=== PATIENT | female | born 1955 | race Caucasian/White ===

== ENCOUNTER → 2019-04-03 | Outpatient (CLI) | payer MEDICARE ==
--- NOTE | 2019-04-05 13:39 | MM ---
Reason for exam: screening (asymptomatic). Last mammogram was performed 3 years and 2 months ago. History: Patient is postmenopausal. Physical Findings: A clinical breast exam by your physician is recommended on an annual basis and results should be correlated with mammographic findings. MG 3D Screening Mammo W/Cad Bilateral CC and MLO view(s) were taken. XCCL view(s) were taken of the left breast. Prior study comparison: January 25, 2016, bilateral MG screening mammo w CAD. July 04, 2011, bilateral digital screening mammo w/CAD. There are scattered fibroglandular densities. There are benign appearing round calcifications in the right breast. There is no discrete abnormality. ASSESSMENT: Benign, BI-RAD 2 RECOMMENDATION: Routine screening mammogram of both breasts in 1 year.
== END | disposition home or self-care (01) ==
LOC: RADMAMWWP 13:09
PROVIDERS: ATTEND Family Medicine
DX: Z12.31 Encounter for screening mammogram for malignant neoplasm of breast (principal)
CPT/HCPCS: 77063; 77067

== ENCOUNTER → 2021-03-10 | Outpatient (CLI) | payer MEDICARE ==
--- NOTE | 2021-03-10 16:40 | XR ---
EXAMINATION TYPE: XR chest 2V DATE OF EXAM: 03/10/2021 COMPARISON: NONE HISTORY: Chest pain TECHNIQUE: Frontal and lateral views of the chest are obtained. FINDINGS: There is no focal air space opacity, pleural effusion, or pneumothorax seen. The cardiac silhouette size is within normal limits. The osseous structures are intact. IMPRESSION: No acute cardiopulmonary process.
== END | disposition home or self-care (01) ==
LOC: RADXRMAIN 13:07
PROVIDERS: ATTEND Family Medicine
DX: R07.89 Other chest pain (principal)
CPT/HCPCS: 71046

== ENCOUNTER → 2021-03-18 | Outpatient (CLI) | payer MEDICARE ==
--- NOTE | 2021-03-18 15:20 | XR ---
Bilateral knees HISTORY: Abnormal weight loss, epigastric pain, pain and swelling in both knees 3 views of each knee submitted. Bone mineralization, joint spaces and alignment are maintained. Suprapatellar increased density is pr esent bilaterally compatible with joint effusions right greater than left. There is spurring at the p atellofemoral joints. IMPRESSION: Joint effusions. Mild osteoarthritic change suspected.
== END | disposition home or self-care (01) ==
LOC: LABWHC1 14:35
PROVIDERS: ATTEND Family Medicine
DX: M25.461 Effusion, right knee (principal); M25.462 Effusion, left knee

== ENCOUNTER → 2021-04-08 | Outpatient (CLI) | payer MEDICARE ==
[2021-04-08 19:35] LABS: African American GFR (CKD) 88.4 (60.0-200.0); Anion Gap 11.6 mmol/L (4.00-12.00); Calcium 8.8 mg/dL (8.7-10.3); Carbon Dioxide 24.4 mmol/L (21.6-31.8); Non-African American GFR(CKD) 76.3 (60.0-200.0); Potassium 4.8 mmol/L (3.5-5.5)
== END | disposition home or self-care (01) ==
LOC: LABWHC1 10:09
PROVIDERS: ATTEND Internal Medicine Interventional Cardiology
DX: I48.91 Unspecified atrial fibrillation (principal)
CPT/HCPCS: 36415; 80048

== ENCOUNTER → 2021-05-11 | Outpatient (CLI) | payer MEDICARE ==
[2021-05-11 13:07] LABS: HCT 43.3 % (34.0-46.0); HGB 14.6 gm/dL (11.4-16.0); MCH 31.5 pg (25.0-35.0); MCHC 33.6 g/dL (31.0-37.0); MCV 93.6 fL (80.0-100.0); Platelet Count 263 k/uL (150-450); RBC 4.63 m/uL (3.80-5.40); RDW 13.1 % (11.5-15.5); WBC 6.9 k/uL (3.8-10.6)
[2021-05-11 13:17] LABS: Potassium 4.8 mmol/L (3.5-5.1)
== END | disposition home or self-care (01) ==
LOC: LABWHC1 12:08
PROVIDERS: ATTEND Internal Medicine Interventional Cardiology
DX: Z01.812 Encounter for preprocedural laboratory examination (principal); I48.11 Longstanding persistent atrial fibrillation
CPT/HCPCS: 36415; 80051; 82565; 84520; 85027

== ENCOUNTER → 2021-05-20 | Day surgery (SDC) | payer MEDICARE ==
[2021-05-19 08:38] VITALS: BMI 32.1
[~2021-05-20] MED LIST: LACTATED RINGERS 1,000 ML IV SCH; PROPOFOL 10 MG/ML 20 ML VIAL IV ONE; SODIUM CHLORIDE 0.9% 1,000 ML IV SCH; SODIUM CHLORIDE 0.9% 500 ML 500 ML IV ONE
[2021-05-20 07:52] VITALS: TEMP 99.4
[2021-05-20 08:57] VITALS: RESP 16
[2021-05-20 10:08] VITALS: BP 131/59; PULSE 67
--- NOTE | 2021-05-20 12:15 | CE ---
CARDIAC ELECTROPHYSIOLOGY REPORT DATE OF SERVICE: 05/20/2021 PROCEDURE: Electrical cardioversion. INDICATION: Persistent atrial fibrillation in spite of pharmacological efforts. CLINICAL INFORMATION: Mrs. Gr presented to see me for a stress test and during the stress test was found to be in atrial fibrillation which is probably new onset. Rate was controlled. Placed on amiodarone and adequately anticoagulated and was brought in for electrical cardioversion electively after due discussion regarding risks, benefits, and options. PROCEDURE NOTE: Under the influence of ultra short-acting intravenous anesthetic agent with the attendance of the anesthesiologist, initial shock of 250 joules was given with anterior and posterior patches. Patient remained in atrial fib, did not convert to sinus rhythm. A second shock of 300 joules was given and with this also she remained in atrial fibrillation. This was therefore an unsuccessful electrical cardioversion. We will continue with rate control and anticoagulation. The details were discussed with the patient and her sister. She will be discharged later on today and I will see her in the office in 1-2 weeks. Same medications will be continued. MMODL / IJN: [id number] /
== END ==
LOC: CATHCVL 07:14
PROVIDERS: ATTEND Internal Medicine Interventional Cardiology
DX: I48.19 Other persistent atrial fibrillation (principal); Z87.891 Personal history of nicotine dependence; R03.0 Elevated blood-pressure reading, without diagnosis of hypertension; Z20.822 Contact with and (suspected) exposure to COVID-19; Z82.49 Family history of ischemic heart disease and other diseases of the circulatory system; Z79.01 Long term (current) use of anticoagulants; Z79.899 Other long term (current) drug therapy; Z88.5 Allergy status to narcotic agent
CPT/HCPCS: 92960; 87635; J2704

== ENCOUNTER → 2021-07-19 | Outpatient (CLI) | payer MEDICARE ==
[2021-07-19 09:24] LABS: HCT 45.1 % (34.0-46.0); HGB 15.4 gm/dL (11.4-16.0); MCH 32.9 pg (25.0-35.0); MCHC 34.1 g/dL (31.0-37.0); MCV 96.4 fL (80.0-100.0); Mean Platelet Volume 8.8; Platelet Count 266 k/uL (150-450); RBC 4.68 m/uL (3.80-5.40); RDW 14.1 % (11.5-15.5); WBC 5.8 k/uL (3.8-10.6)
[2021-07-19 09:33] LABS: Potassium 4.3 mmol/L (3.5-5.1)
== END | disposition home or self-care (01) ==
LOC: LABPAT 08:23
PROVIDERS: ATTEND Internal Medicine Clinical Cardiac Electrophysiology
DX: Z01.812 Encounter for preprocedural laboratory examination (principal); I48.11 Longstanding persistent atrial fibrillation
CPT/HCPCS: 36415; 80051; 82565; 84520; 85027

== ENCOUNTER 2021-07-27 11:45 | Day surgery (SDC) | payer MEDICARE ==
[2021-07-22 08:17] VITALS: BMI 31.8
[~2021-07-27 11:45] MED LIST changes: +DEXAMETHASONE SOD PHOSPHATE 4 MG/ML 1 ML VIAL IV ONE; +HYDROmorphone 0.5 MG/0.5 ML SYRINGE IVP PRN; -LACTATED RINGERS 1,000 ML IV SCH; +MIDAZOLAM 2 MG/2 ML VIAL IV PRN; +ONDANSETRON 4 MG/2 ML VIAL IVP ONE; -PROPOFOL 10 MG/ML 20 ML VIAL IV ONE; -SODIUM CHLORIDE 0.9% 1,000 ML IV SCH; -SODIUM CHLORIDE 0.9% 500 ML 500 ML IV ONE
--- NOTE | 2021-07-27 15:37 | P.HPCAR ---
History of Present Illness This is Dr. Schmitt dictating an H/P on this patient The patient was interviewed and examined IMPRESSION / ASSESSMENT: Persistent atrial fibrillation, symptomatic Amiodarone has been discontinued since it failed to maintain rhythm control Essential hypertension Moderate MR LV function 50% PLAN: Proceed with ablation for A. fib with pulmonary and isolation and linear ablation in the left atrium HPI Patient complains of shortness of breath on exertion She has failed to rhythm control strategy of starting amiodarone followed by electrical cardioversion Electrical cardioversion failed At this time she denies any fever chills cough expectoration. No chest discomfort dizziness or syncope recently ROS: No fever chills or rigors, no cough, phlegm or expectoration, no nausea, vomiting or diarrhea, no hematuria, dysuria, no musculoskeletal complaints, no strokes or seizures, no skin lesions. EXAMINATION: Afebrile 98.9F, blood pressure 120/79 mmHg Breath sounds are clear REVIEW OF LABS, ECG & MEDICAL DATA Xarelto 20 mg daily and metoprolol MRI shows bilateral frontal lobe atrophy Physical Exam Vitals: Vital Signs Temp Pulse Resp BP Pulse Ox 07/27/21 12:26 98.9 F 68 18 120/79 94 L Intake and Output 07/27/21 07/27/21 07/27/21 06:59 14:59 22:59 Other: Weight 92 kg Past Medical History Past Medical History: Atrial Fibrillation, Osteoarthritis (OA), Sleep Apnea/CPAP/BIPAP Additional Past Medical History / Comment(s): doesn't use CPAP, History of Any Multi-Drug Resistant Organisms: None Reported Past Surgical History: Hysterectomy, Orthopedic Surgery Additional Past Surgical History / Comment(s): CTS left wrist, left shoulder arthroscopy, CARDIOVERSION Past Anesthesia/Blood Transfusion Reactions: Postoperative Nausea & Vomiting (PONV) Smoking Status: Former smoker - Past Family History Mother Family Medical History: No Reported History Physical Examination Vital Signs Temp Pulse Resp BP Pulse Ox 07/27/21 12:26 98.9 F 68 18 120/79 94 L Intake and Output 07/27/21 07/27/21 07/27/21 06:59 14:59 22:59 Other: Weight 92 kg Results Current Medications Generic Name Dose Route Start Last Admin Trade Name Freq PRN Reason Stop Dose Admin Hydromorphone HCl 0.5 mg 07/27/21 07:00 Hydromorphone 0.5 Mg/0.5 Ml Syringe IVP 07/27/21 23:00 Q5M PRN Pain Control Sodium Chloride 1,000 mls @ 20 mls/hr 07/27/21 05:37 Saline 0.9% IV 08/26/21 05:38 .Q24H ALLEN Lactated Ringer's 1,000 mls @ 20 mls/hr 07/27/21 05:37 Lactated Ringers IV 08/26/21 05:38 .Q24H ALLEN Lactated Ringer's 1,000 mls @ 20 mls/hr 07/27/21 05:37 Lactated Ringers IV 08/26/21 05:38 .Q24H ALLEN Midazolam HCl 2 mg 07/27/21 07:00 Midazolam 2 Mg/2 Ml Vial IV 07/27/21 23:00 ONCE PRN Anxiety Intake and Output 07/27/21 07/27/21 07/27/21 06:59 14:59 22:59 Other: Weight 92 kg Patient Weight 07/28/21 06:59 Weight 92 kg
[2021-07-27] MEDS ORDERED: MIDAZOLAM 2 MG/2 ML VIAL ONE (15:44)
[2021-07-27] MEDS ORDERED: PROPOFOL 10 MG/ML 20 ML VIAL IV ONE (15:44)
[2021-07-27] MEDS ORDERED: DEXAMETHASONE SOD PHOSPHATE 10 MG/ML 1 ML VIAL ONE (15:44)
[2021-07-27] MEDS ORDERED: PROTAMINE SULFATE 10 MG/ML 5 ML VIAL IV ONE (15:44)
[2021-07-27] MEDS ORDERED: HEPARIN SODIUM,PORCINE 10,000 UNIT/ML 1 ML VIAL ONE (15:44)
[2021-07-27] MEDS ORDERED: SUCCINYLCHOLINE CHLORIDE 100 MG/5 ML SYR IV ONE (15:44)
[2021-07-27] MEDS ORDERED: PHENYLEPHRINE-0.9% NACL SYG 1,000 MCG/10 ML SYRINGE ONE (15:44)
[2021-07-27] MEDS ORDERED: fentaNYL (PF) 50 MCG/ML 2 ML AMP ONE (15:44)
[2021-07-27] MEDS ORDERED: LIDOCAINE 1% INJ 10MG/ML (20 ML MDV) ONE ×2 (15:44→16:12)
[2021-07-27] MEDS ORDERED: HEPARIN SOD,PORK IN 0.45% NACL 25,000 UNIT in 0.45% NACL 1 250ML.BAG IV ONE (15:57)
[2021-07-27] MEDS ORDERED: IV FLUID CONTINUATION 950 ML IV ONE (15:57)
[2021-07-27] MEDS ORDERED: HEPARIN SODIUM (1,000 UNIT/ML) 1,000 UNIT in SODIUM CHLORIDE 0.9% 1,000 ML IRRIGATION ONE (15:57)
[2021-07-27] MEDS ORDERED: LIDOCAINE 1% INJ 10MG/ML (20 ML MDV) SQ ONE (16:36)
[2021-07-27] MEDS ORDERED: IOPAMIDOL-370 100ML BTL INJ ONE ×2 (18:30)
--- NOTE | 2021-07-27 19:30 | P.EPPROC ---
- EP Procedure Note Electrophysiology Procedure Note: PROCEDURE A. fib ablation, PVI and linear ablation DIAGNOSIS Atrial fibrillation, symptomatic, refractory to therapy Persistent atrial fibrillation, symptomatic Failed amiodarone therapy RESULT No left atrial appendage mass seen on intracardiac echo Successful A. fib ablation/pulmonary vein isolation of all veins using cryo- ablation Complete entrance block in all 4 veins confirmed No evidence for phrenic nerve injury Continue ablation left atrial roof with complete line of block Linear ablation posterior left atrial septum, complete line of block Esophageal deflection YES Electrical cardioversion with a synchronized shock across the chest YES PROCEDURE DETAILS Patient was brought to the EP lab in a fasting state. Written informed consent was obtained prior to the procedure. Procedure performed under general anesthesia After initial muscle relaxant use, muscle relaxants were not given thereafter in order to assess phrenic nerve during procedure. Patient prepped and draped as per protocol Full cryo-set up with standard preparation of the cryoablation tools done. Femo ral Venous access obtained on the right and left groins Venous and arterial Sheaths placed. Diagnostic catheters for the high right atrium, phrenic nerve stimulation and pacing, His bundle, RV and coronary sinus placed Intracardiac echo catheter placed. Long sheath placed in the right atrium Left and right transseptal catheterization performed under intracardiac echo guidance. Intravenous heparin with aCT above 300 Later, catheter positioning and balloon positioning in the left atrium, under intracardiac echo guidance Diagnostic EP study with Coronary sinus recording Baseline measurements: QRS 86, QT 440 Transseptal catheterization performed RA pressure 8/5/7 LA pressure 21/9/15 Transseptal catheterization performed with standard sheath. The cryoablation sheath was then placed with an over the wire exchange without any acute complications. All 4 pulmonary veins were isolated in the following sequence: Left superior followed by left inferior followed by right superior followed by right inferior The cryo-ablation balloon was placed at the os of each vein 1.5 mL of IV dye was injected to confirm an occluded vein Goal during cryoablation was to achieve complete occlusion of the pulmonary vein, achieve -30 degrees C at 30 seconds and achieve -40 degrees C at 60 seconds and a time to effect of less than 60-90 seconds, . If not the balloon was repositioned to obtain this result After completion of Cryoblation with durations from 180-240 seconds, entrance block was confirmed with the Attain circular catheter in a roving fashion around the antrum of the pulmonary veins Phrenic nerve pacing was performed from the SVC, right innominate vein area and diaphragm voltage was monitored. Diaphragmatic contractions were also monitored manually for strength of contraction. Parameter goals for each cryo freeze Complete occlusion of the appropriate vein -30 degrees C by 30 seconds -40 degrees C by 60 seconds Minimum between minus 40-55 degrees C Thaw time greater than 10 seconds Balloon visualized by intracardiac echo The esophagus was intubated. Esophageal Temperature monitoring with a CIRCA catheter formed. Esophageal deflection for hypothermia of the esophagus below 30 degrees C Left superior pulmonary vein Complete isolation, entrance block Left inferior pulmonary vein Complete isolation, entrance block Right superior pulmonary vein, during phrenic nerve pacing Complete isolation, entrance block Right inferior pulmonary vein, during phrenic nerve pacing Complete isolation, entrance block At the end of the procedure the Achieve catheter was once again used to check for entrance block Phrenic nerve stimulation was performed to confirm diaphragmatic stimulation the end of the procedure Cine fluoroscopy was performed at the very end of the procedure to confirm movement of both diaphragms with inspiration and expiration Using the cryo balloon, linear ablation was performed from the right superior to the left superior pulmonary veins This was later evaluated with voltage mapping Voltage mapping of the left atrial roof showed that the posterior left atrial roof was completely ablated and isolated the complete line of block RF catheter sheath was placed RF ablation was also applied in the septum from the roof down to the right inferior pulmonary vein and the posterior septum was completely isolated At the end of the procedure the patient was extubated Heparin was reversed Venous sheaths were removed and hemostasis assured. Vascade applied PROCEDURES PERFORMED Diagnostic EP study CS pacing and recording Left and right transseptal catheterization 3D mapping) Intracardiac echocardiography Pulmonary vein isolation with transseptal and comprehensive EPS, [id number] Left atrial roof line, +[id number] Linear ablation, left atrium, +[id number] Electrical cardioversion with a synchronized shock across the chest [id number]
--- NOTE | 2021-07-27 19:32 | P.PRLE ---
RE: Chayito Gr Dear Jessi Stratton underwent A. fib ablation with cryoablation the pulmonary veins, linear ablation in the left atrial roof and linear ablation of left atrial septum Subsequently she remained in atrial fibrillation and underwent electrical cardioversion She will continue anticoagulation Amiodarone was already discontinued previously since it failed to maintain sinus rhythm She'll continue to follow with you and Dr. Fuentes as before Thank you for entrusting me with the care of the patient Warm regards Sincerely Pedro Schmitt
[2021-07-27] MEDS ORDERED: ACETAMINOPHEN IV (For NPO) 1,000 MG in EMPTY BAG 1 BAG IVPB ONE (19:36)
[2021-07-27] MEDS ORDERED: ACETAMINOPHEN TAB 325 MG TAB PO PRN (19:36)
[2021-07-27] MEDS: LACTATED RINGERS 1,000 ML IV SCH ×2 (20:38)
[2021-07-27] MEDS: SODIUM CHLORIDE 0.9% 1,000 ML IV SCH (20:39)
[2021-07-27] MEDS ORDERED: RIVAROXABAN 20 MG TAB PO SCH (21:45)
[2021-07-28] MEDS: LACTATED RINGERS 1,000 ML IV SCH ×2 (03:49)
[2021-07-28] MEDS: SODIUM CHLORIDE 0.9% 1,000 ML IV SCH (03:49)
[2021-07-28 07:03] VITALS: BP 111/70; PULSE 76; RESP 16; TEMP 98.6
[2021-07-28] MEDS ORDERED: METOPROLOL TARTRATE 25 MG TAB PO SCH (09:00)
[2021-07-28] MEDS ORDERED: RIVAROXABAN 20 MG TAB PO SCH (21:00)
== END 2021-07-28 15:31 | disposition home or self-care (01) ==
LOC: CATHEP 11:45 → 6NMEDSUR 17:18 → CATHEP 07-28 15:31
PROVIDERS: ATTEND Internal Medicine Clinical Cardiac Electrophysiology
DX: I48.19 Other persistent atrial fibrillation (principal); Z79.01 Long term (current) use of anticoagulants; Z79.899 Other long term (current) drug therapy; R03.0 Elevated blood-pressure reading, without diagnosis of hypertension
CPT/HCPCS: 93662; 93613; 93656; 93657; C1894 ×2; C1769 ×4; C1760; C1730 ×2; C1893; C1733; C1766; C1732; J2001; J1644 ×2; Q9967

== ENCOUNTER 2021-10-17 09:24 | Emergency (ER) | payer MEDICARE ==
[2021-10-17 09:38] VITALS: RESP 18
[2021-10-17] MEDS ORDERED: ACETAMINOPHEN TAB 500 MG TAB PO STA (11:36)
[2021-10-17] MEDS ORDERED: SODIUM CHLORIDE 0.9% 1,000 ML IV ONE (11:36)
--- NOTE | 2021-10-17 11:39 | ED ---
General Adult HPI - General Chief complaint: Upper Respiratory Infection Stated complaint: Dizziness, abd pain, cough Time Seen by Provider: 10/17/21 10:45 Source: patient, RN notes reviewed, old records reviewed Mode of arrival: ambulatory Limitations: no limitations - History of Present Illness Initial comments: 66-year-old female presenting with cough congestion for the past one week. She's had intermittent fevers over this time. She is not vaccinated against coronavirus. She has a mild dyspnea. No previous history of asthma or COPD. She does report some indigestion and lower chest discomfort which is been present for this past week as well. - Related Data Home Medications Medication Instructions Recorded Confirmed Metoprolol Tartrate [Lopressor] 25 mg PO DAILY 05/19/21 07/27/21 Rivaroxaban [Xarelto] 20 mg PO HS 05/19/21 07/27/21 Allergies Allergy/AdvReac Type Severity Reaction Status Date / Time No Known Allergies Allergy Verified 10/17/21 12:58 Review of Systems ROS Statement: Those systems with pertinent positive or pertinent negative responses have been documented in the HPI. ROS Other: All systems not noted in ROS Statement are negative. Past Medical History Past Medical History: Atrial Fibrillation, Hypertension, Sleep Apnea/CPAP/BIPAP Additional Past Medical History / Comment(s): doesn't use CPAP, frequent leg & knee pain History of Any Multi-Drug Resistant Organisms: None Reported Past Surgical History: Ablation Additional Past Surgical History / Comment(s): CTS left wrist, left shoulder arthroscopy Past Anesthesia/Blood Transfusion Reactions: Postoperative Nausea & Vomiting (PONV) Past Psychological History: No Psychological Hx Reported Smoking Status: Former smoker Past Alcohol Use History: Occasional Past Drug Use History: None Reported General Exam Limitations: no limitations General appearance: alert, in no apparent distress Head exam: Present: atraumatic, normocephalic Eye exam: Present: normal appearance, PERRL ENT exam: Present: mucous membranes dry Neck exam: Present: normal inspection. Absent: tenderness, meningismus Respiratory exam: Present: rhonchi. Absent: respiratory distress, wheezes Cardiovascular Exam: Present: regular rate, normal rhythm GI/Abdominal exam: Present: soft. Absent: distended, tenderness, guarding Extremities exam: Present: normal inspection, normal capillary refill. Absent: pedal edema Neurological exam: Present: alert, oriented X3, CN II-XII intact. Absent: motor sensory deficit Psychiatric exam: Present: normal affect, normal mood Skin exam: Present: warm, dry, intact. Absent: cyanosis, diaphoretic Course Vital Signs 10/17/21 10/17/21 09:35 12:43 Temperature 101.1 F H Pulse Rate 79 60 Respiratory 18 18 Rate Blood Pressure 143/67 99/54 O2 Sat by Pulse 95 95 Oximetry EKG Findings - EKG Comments: EKG Findings:: EKG: Normal sinus rhythm, rate 77, MO interval 176, QRS duration 74, QTC [address] segment elevation. Medical Decision Making - Medical Decision Making 66-year-old female with cold-like illness, does test positive for coronavirus. She has normal oxygenation on room air without respiratory distress. Mild tachypnea. She has a normal CBC, relatively normal CMP, negative troponin, nonischemic EKG. This workup was initiated secondary to some lower chest discomfort. She's had symptoms for one week and does meet criteria for monoclonal antibody infusion. This is administered in the emergency department. She's given strict return parameters. - Lab Data Result diagrams: 10/17/21 11:56 10/17/21 11:56 Lab Results 10/17/21 10/17/21 10/17/21 Range/Units 09:42 11:56 11:56 WBC 3.9 (3.8-10.6) k/uL RBC 4.80 (3.80-5.40) m/uL Hgb 15.3 (11.4-16.0) gm/dL Hct 44.7 (34.0-46.0) % MCV 93.1 (80.0-100.0) fL MCH 31.9 (25.0-35.0) pg MCHC 34.2 (31.0-37.0) g/dL RDW 12.7 (11.5-15.5) % Plt Count 170 (150-450) k/uL MPV 8.6 Neutrophils % 57 % Lymphocytes % 34 % Monocytes % 6 % Eosinophils % 0 % Basophils % 0 % Neutrophils # 2.2 (1.3-7.7) k/uL Lymphocytes # 1.4 (1.0-4.8) k/uL Monocytes # 0.2 (0-1.0) k/uL Eosinophils # 0.0 (0-0.7) k/uL Basophils # 0.0 (0-0.2) k/uL Sodium 142 (137-145) mmol/L Potassium 4.5 (3.5-5.1) mmol/L Chloride 104 (98-107) mmol/L Carbon Dioxide 29 (22-30) mmol/L Anion Gap 9 mmol/L BUN 16 (7-17) mg/dL Creatinine 0.97 (0.52-1.04) mg/dL Est GFR (CKD-EPI)AfAm 70 (>60 ml/min/1.73 sqM) Est GFR (CKD-EPI)NonAf 61 (>60 ml/min/1.73 sqM) Glucose 108 H (74-99) mg/dL Calcium 9.2 (8.4-10.2) mg/dL Magnesium 2.0 (1.6-2.3) mg/dL Total Bilirubin 0.9 (0.2-1.3) mg/dL AST 39 H (14-36) U/L ALT 39 H (4-34) U/L Alkaline Phosphatase 54 (38-126) U/L Troponin I (0.000-0.034) ng/mL Total Protein 7.5 (6.3-8.2) g/dL Albumin 4.2 (3.5-5.0) g/dL Coronavirus (PCR) Detected A (Not Detectd) 10/17/21 Range/Units 11:56 WBC (3.8-10.6) k/uL RBC (3.80-5.40) m/uL Hgb (11.4-16.0) gm/dL Hct (34.0-46.0) % MCV (80.0-100.0) fL MCH (25.0-35.0) pg MCHC (31.0-37.0) g/dL RDW (11.5-15.5) % Plt Count (150-450) k/uL MPV Neutrophils % % Lymphocytes % % Monocytes % % Eosinophils % % Basophils % % Neutrophils # (1.3-7.7) k/uL Lymphocytes # (1.0-4.8) k/uL Monocytes # (0-1.0) k/uL Eosinophils # (0-0.7) k/uL Basophils # (0-0.2) k/uL Sodium (137-145) mmol/L Potassium (3.5-5.1) mmol/L Chloride (98-107) mmol/L Carbon Dioxide (22-30) mmol/L Anion Gap mmol/L BUN (7-17) mg/dL Creatinine (0.52-1.04) mg/dL Est GFR (CKD-EPI)AfAm (>60 ml/min/1.73 sqM) Est GFR (CKD-EPI)NonAf (>60 ml/min/1.73 sqM) Glucose (74-99) mg/dL Calcium (8.4-10.2) mg/dL Magnesium (1.6-2.3) mg/dL Total Bilirubin (0.2-1.3) mg/dL AST (14-36) U/L ALT (4-34) U/L Alkaline Phosphatase (38-126) U/L Troponin I <0.012 (0.000-0.034) ng/mL Total Protein (6.3-8.2) g/dL Albumin (3.5-5.0) g/dL Coronavirus (PCR) (Not Detectd) Disposition Clinical Impression: COVID-19 Disposition: HOME SELF-CARE Condition: Fair Instructions (If sedation given, give patient instructions): Coronavirus Dis ease 2019 (COVID-19) Is patient prescribed a controlled substance at d/c from ED?: No Referrals: Ned Riddle DO [Primary Care Provider] - 1-2 days Time of Disposition: 12:59
[2021-10-17 12:11] LABS: Basophils % (A) 0 %; Eosinophils % (A) 0 %; HCT 44.7 % (34.0-46.0); HGB 15.3 gm/dL (11.4-16.0); Lymphocytes # (A) 1.4 k/uL (1.0-4.8); Lymphocytes % (A) 34 %; MCH 31.9 pg (25.0-35.0); MCHC 34.2 g/dL (31.0-37.0); MCV 93.1 fL (80.0-100.0); Mean Platelet Volume 8.6; Monocytes # (A) 0.2 k/uL (0-1.0); Monocytes % (A) 6 %; Neutrophils # (A) 2.2 k/uL (1.3-7.7); Neutrophils % (A) 57 %; Platelet Count 170 k/uL (150-450); RDW 12.7 % (11.5-15.5); WBC 3.9 k/uL (3.8-10.6)
[2021-10-17] MEDS ORDERED: SODIUM CHLORIDE 0.9% 50 ML IVPB ONE (12:15)
[2021-10-17 12:22] LABS: Albumin 4.2 g/dL (3.5-5.0); Calcium 9.2 mg/dL (8.4-10.2); Potassium 4.5 mmol/L (3.5-5.1); Total Bilirubin 0.9 mg/dL (0.2-1.3); Total Protein 7.5 g/dL (6.3-8.2)
[2021-10-17] MEDS ORDERED: BAMLANIVIMAB (EUA) 700 MG, ETESEVIMAB (EUA) 1,400 MG in SODIUM CHLORIDE 0.9% 50 ML IVPB ONE (12:30)
[2021-10-17 13:12] VITALS: TEMP 99.4
[2021-10-17 14:29] VITALS: BP 115/70; PULSE 62
== END 2021-10-17 14:29 | disposition home or self-care (01) ==
LOC: EC 09:24
DX: U07.1 COVID-19 (principal); I10 Essential (primary) hypertension; I48.91 Unspecified atrial fibrillation; Z87.891 Personal history of nicotine dependence; Z79.01 Long term (current) use of anticoagulants; Z79.899 Other long term (current) drug therapy
CPT/HCPCS: 36415; 93005; 80053; 83735; 84484; 85025; 87635; 96365; 96361; 99285; J3490

== ENCOUNTER → 2021-12-24 | Outpatient (CLI) | payer MEDICARE ==
--- NOTE | 2021-12-27 10:03 | MM ---
Reason for exam: screening (asymptomatic). Last mammogram was performed 2 years and 9 months ago. History: Patient is postmenopausal. Physical Findings: A clinical breast exam by your physician is recommended on an annual basis and results should be correlated with mammographic findings. MG 3D Screening Mammo W/Cad Bilateral CC and MLO view(s) were taken. Prior study comparison: April 03, 2019, bilateral MG 3d screening mammo w/cad. January 25, 2016, bilateral MG screening mammo w CAD. There are scattered fibroglandular densities. There are benign appearing round calcifications bilaterally. There is no discrete abnormality. ASSESSMENT: Benign, BI-RAD 2 RECOMMENDATION: Routine screening mammogram of both breasts in 1 year.
== END | disposition home or self-care (01) ==
LOC: RADMAMWWP 07:35
PROVIDERS: ATTEND Family Medicine
DX: Z12.31 Encounter for screening mammogram for malignant neoplasm of breast (principal); Z78.0 Asymptomatic menopausal state
CPT/HCPCS: 77063; 77067

== ENCOUNTER → 2023-02-23 | Outpatient (CLI) | payer MEDICARE ==
--- NOTE | 2023-02-23 11:13 | XR ---
EXAMINATION TYPE: XR chest 2V DATE OF EXAM: 02/23/2023 COMPARISON: 03/10/2021 TECHNIQUE: PA and lateral views submitted. HISTORY: Shortness of breath FINDINGS: Patchy attenuation right upper lobe. No pneumothorax or pleural effusion.. Heart size normal and no overt failure. Osseous structures demonstrate hypertrophic and degenerative changes of the spine. IMPRESSION: 1. Vague patchy right upper lobe atelectasis or early infiltrate correlate clinically..
== END | disposition home or self-care (01) ==
LOC: RADXRMAIN 10:45
PROVIDERS: ATTEND Family Medicine
DX: R06.2 Wheezing (principal); R06.02 Shortness of breath
CPT/HCPCS: 71046

== ENCOUNTER → 2023-05-09 | Outpatient (CLI) | payer MEDICARE ==
--- NOTE | 2023-05-09 11:33 | XR ---
EXAMINATION TYPE: XR cervical spine limited DATE OF EXAM: 05/09/2023 COMPARISON: NONE HISTORY: Pain TECHNIQUE: Three views are submitted. FINDINGS: The odontoid is intact. There are no compression deformities. The prevertebral soft tissue structur es are within normal limits. Multilevel moderate to severe degenerative disc disease and facet arthr opathy. Lung apices are clear. IMPRESSION: 1. Severe multilevel degenerative disc disease and facet arthropathy with posterior spondylosis recom mend MRI to assess for canal stenosis and foraminal encroachment..
== END | disposition home or self-care (01) ==
LOC: RADXRMAIN 09:19
PROVIDERS: ATTEND Family Medicine
DX: M50.30 Other cervical disc degeneration, unspecified cervical region (principal); M47.812 Spondylosis without myelopathy or radiculopathy, cervical region; M99.71 Connective tissue and disc stenosis of intervertebral foramina of cervical region
CPT/HCPCS: 72040

== ENCOUNTER → 2023-06-06 | Outpatient (CLI) | payer MEDICARE ==
[2023-06-06 08:56] LABS: African American GFR (CKD) 81 (>60 ml/min/1.73 sqM); Blood Urea Nitrogen 23 mg/dL (7-17); Non-African American GFR(CKD) 70 (>60 ml/min/1.73 sqM)
--- NOTE | 2023-06-06 11:22 | CT ---
EXAMINATION TYPE: CT chest w con DATE OF EXAM: 06/06/2023 COMPARISON: None HISTORY: Spot on lung, abnormal x-ray CT DLP: 473.7 mGycm Automated exposure control for dose reduction was used. TECHNIQUE: CT scan of the chest is performed with IV Contrast, patient injected with 100 mL of Isovue 300. MIP Images are created on CT scanner and reviewed. 3D reconstructed images are created on an independent workstation and reviewed. FINDINGS: LUNGS: The lungs are grossly clear, there is no concerning parenchymal mass or nodule identified. T here is no pleural effusion or pneumothorax seen. The tracheobronchial tree is patent. There is depe ndent groundglass attenuation predominantly posteriorly most typical of atelectasis. MEDIASTINUM: There are no greater than 1 cm hilar or mediastinal lymph nodes. No pericardial effusi on is seen. The heart is enlarged. Aorta of normal caliber. Mild atherosclerotic changes. Small hiat al hernia. OTHER: Simple left renal cyst. Hypertrophic and degenerative change of the spine. Subcentimeter thyr oid nodules incidentally noted. IMPRESSION: 1. No suspicious pulmonary mass or consolidation. Groundglass changes are felt to be more typical of atelectasis rather than pneumonia correlate clinically. 2. Marked cardiomegaly with small hiatal hernia. 3. Subcentimeter thyroid nodules.
== END | disposition home or self-care (01) ==
LOC: RADCTMAIN 07:58
PROVIDERS: ATTEND Family Medicine
DX: K44.9 Diaphragmatic hernia without obstruction or gangrene (principal); E04.2 Nontoxic multinodular goiter; R91.8 Other nonspecific abnormal finding of lung field; I51.7 Cardiomegaly
CPT/HCPCS: 82565; 84520; 71260; 36415; Q9967

== ENCOUNTER → 2024-07-24 | Outpatient (CLI) | payer MEDICARE ==
--- NOTE | 2024-07-24 16:01 | US ---
EXAMINATION TYPE: US venous doppler duplex LE LT DATE OF EXAM: 07/24/2024 3:18 PM COMPARISON: NONE CLINICAL INDICATION: Female, 69 years old with history of R600 LOCALIZED EDEMA; edema SIDE PERFORMED: Left TECHNIQUE: The lower extremity deep venous system is examined utilizing real time linear array sonog [place] with graded compression, doppler sonography and color-flow sonography. VESSELS IMAGED: Common Femoral Vein Deep Femoral Vein Greater Saphenous Vein * Femoral Vein Popliteal Vein Small Saphenous Vein * Proximal Calf Veins (* superficial vessels) Left Leg: Negative for DVT IMPRESSION: 1. Left lower extremity ultrasound negative for deep venous thrombosis
== END | disposition home or self-care (01) ==
LOC: RADUSWWP 14:57
PROVIDERS: ATTEND Family Medicine
DX: R60.0 Localized edema (principal)

== ENCOUNTER → 2024-11-08 | Outpatient (CLI) | payer MEDICARE ==
--- NOTE | 2024-11-10 03:42 | MM ---
Reason for Exam: Screening (asymptomatic). Last mammogram was performed 2 year(s) and 11 month(s) ago. Patient History: Menarche at age 13. First Full-Term at age 19. Hysterectomy at age 42. Postmenopausal. Patient used Hormonal Contraceptives for 8 years. Risk Values: Gina 5 year model risk: 1.4%. NCI Lifetime model risk: 4.1%. Prior Study Comparison: 01/25/2016 Bilateral Screening Mammogram, [facility]. 04/03/2019 Bilateral Screening Mammogram, [facility]. 12/24/2021 Bilateral Screening Mammogram, [facility]. Tissue Density: The breasts are almost entirely fatty. Findings: Analyzed By CAD. The pattern is symmetrical. No significant interval change. No suspicious groups of microcalcifications, spiculated or lobular masses, architectural distortion or other secondary signs of malignancy are mammographically apparent. Overall Assessment: Benign, BI-RAD 2 Management: Screening Mammogram of both breasts in 1 year. A negative mammogram report should not preclude additional follow up of suspicious palpable abnormalities. Patient should continue monthly self breast exam. A clinical breast exam by your physician is recommended on an annual basis and results should be correlated with mammographic findings. Note on Gina scores and lifetime risk: 1. A Gina score greater than 3% is considered moderate risk. If this is the case, consider specialist referral to assess eligibility for a risk reducing agent. 2. If overall lifetime risk for the development of breast cancer is 20% or higher, the patient may qualify for future screening with alternating mammogram and breast MRI. [facility], , 11/10/2024 3:40 AM. Electronically signed and approved by: Kenneth Richter D.O. Radiologis
== END | disposition home or self-care (01) ==
LOC: RADMAMWWP 09:36
PROVIDERS: ATTEND Family Medicine
DX: Z12.31 Encounter for screening mammogram for malignant neoplasm of breast (principal); Z78.0 Asymptomatic menopausal state; R92.313 Mammographic fatty tissue density, bilateral breasts
CPT/HCPCS: 77063; 77067

== ENCOUNTER 2025-02-06 09:43 | Emergency (ER) | payer MEDICARE, OTHER ==
[2025-02-06 09:54] VITALS: TEMP 98.2
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
[2025-02-06 10:29] LABS: Basophils # (A) 0.1 k/uL (0-0.2); Basophils % (A) 1 %; Eosinophils # (A) 0.1 k/uL (0-0.7); Eosinophils % (A) 2 %; HCT 44.1 % (34.0-46.0); HGB 14.1 gm/dL (11.4-16.0); Lymphocytes # (A) 1.9 k/uL (1.0-4.8); Lymphocytes % (A) 29 %; Mean Platelet Volume 8.2; Monocytes # (A) 0.3 k/uL (0-1.0); Monocytes % (A) 5 %; Neutrophils % (A) 62 %; Platelet Count 261 k/uL (150-450); RBC 4.69 m/uL (3.80-5.40); RDW 13.1 % (11.5-15.5); WBC 6.4 k/uL (3.8-10.6)
[2025-02-06] MEDS: MORPHINE SULFATE 4 MG/ML SYRINGE IVP STA (10:30)
[2025-02-06] MEDS: SODIUM CHLORIDE 0.9% 1,000 ML IV STA (10:33)
[2025-02-06] MEDS: ONDANSETRON 4 MG/2 ML VIAL IVP STA (10:34)
[2025-02-06 10:57] LABS: Prothrombin Time 10.8 sec (10.0-12.5)
[2025-02-06 11:06] LABS: ALT 19 U/L (4-34); African American GFR (CKD) >90 (>60 ml/min/1.73 sqM); Anion Gap 9 mmol/L; Blood Urea Nitrogen 19 mg/dL (7-17); Calcium 9.3 mg/dL (8.4-10.2); Carbon Dioxide 26 mmol/L (22-30); Chloride 106 mmol/L (98-107); Glucose 107 mg/dL (74-99); Non-African American GFR(CKD) 81 (>60 ml/min/1.73 sqM); Sodium 141 mmol/L (137-145); Total Bilirubin 1.3 mg/dL (0.2-1.3)
[2025-02-06 11:36] LABS: AST 30 U/L (14-36); Total Protein 7.4 g/dL (6.3-8.2)
[2025-02-06 11:37] LABS: Alkaline Phosphatase 71 U/L (38-126)
[2025-02-06 11:38] LABS: Albumin 4.2 g/dL (3.5-5.0)
--- NOTE | 2025-02-06 11:39 | XR ---
EXAMINATION TYPE: XR pelvis AP view DATE OF EXAM: 02/06/2025 CLINICAL INDICATION: Female, 69 years old with history of Trauma, pain TECHNIQUE: A single AP view of the pelvis is obtained. COMPARISON: Sacrum/coccyx x-ray October 2015. FINDINGS: There is no acute fracture/dislocation evident in the pelvis. Moderate axial joint space l oss in both hips. Pubic symphysis is intact. Sacroiliac joints are preserved. The overlying soft tiss ue appears unremarkable. IMPRESSION: There is no acute fracture or dislocation in the pelvis. [facility], , 02/06/2025 11:37 AM
--- NOTE | 2025-02-06 11:40 | XR ---
EXAMINATION TYPE: XR ribs RT w pa chest xray DATE OF EXAM: 02/06/2025 11:30 AM COMPARISON: Chest CT June 06, 2023 CLINICAL INDICATION: Female, 69 years old with history of fall, pain; PHH, pain TECHNIQUE: XR ribs RT w pa chest xray; Frontal and oblique views of the ribs with frontal chest radio graph. FINDINGS: Lungs are grossly clear. Overlying bra strap is seen. Cardiac silhouette size is stable and upper limits of normal. No acute displaced right-sided rib fracture is seen. IMPRESSION: No acute findings. [facility], , 02/06/2025 11:38 AM
--- NOTE | 2025-02-06 11:43 | XR ---
EXAMINATION TYPE: XR knee complete bilateral DATE OF EXAM: 02/06/2025 CLINICAL INDICATION: Female, 69 years old with history of fall, pain, pain TECHNIQUE: 3 views of the bilateral knees are obtained. COMPARISON: Bilateral knee x-rays March 18, 2021. FINDINGS: Osseous structures are demineralized. There is linear lucency suggestive of acute intra-art icular fracture through the medial tibial plateau in the right knee. There is asymmetric prominent so ft tissue density could reflect large suprapatellar joint effusion in the right knee. No acute displaced fracture in the left knee. IMPRESSION: There is acute nondisplaced intra-articular fracture through the medial tibial plateau. Consider CT follow-up to better evaluate based on orthopedic evaluation. [facility], , 02/06/2025 11:40 AM
[2025-02-06 12:56] VITALS: BP 103/71; PULSE 114; RESP 12
== END 2025-02-06 12:55 | disposition home or self-care (01) ==
LOC: EC 09:43
DX: S82.141A Displaced bicondylar fracture of right tibia, initial encounter for closed fracture (principal); R00.0 Tachycardia, unspecified; Z87.891 Personal history of nicotine dependence; W18.30XA Fall on same level, unspecified, initial encounter
CPT/HCPCS: 36415; 93005; 86900; 86901; 80053; 85025; 85610; 85730; 86850; 71101; 73562; 72170; 99284; 96374; 96375; 96361; 29505; L1830; J2270; J2405

== ENCOUNTER → 2025-02-12 | Outpatient (CLI) | payer OTHER ==
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
== END | disposition home or self-care (01) ==
LOC: RADCTMAIN 15:28
PROVIDERS: ATTEND Orthopaedic Surgery Sports Medicine
DX: S82.141A Displaced bicondylar fracture of right tibia, initial encounter for closed fracture (principal); M85.9 Disorder of bone density and structure, unspecified; X58.XXXA Exposure to other specified factors, initial encounter